=== PATIENT | female | born 1930 | race Hispanic/Latino ===

== ENCOUNTER 2019-02-07 09:15 | Day surgery (SDC) | payer OTHER ==
[2019-02-06 11:44] LABS: Absolute Lymphocytes (CBC) 1.6 K/uL (0.7-4.9); Absolute Monocytes 0.6 K/uL (0.1-1.3); Absolute Neutrophil 8.2 K/uL (1.8-8.0); Basophils % 0.9 % (0-1.3); Eosinophils % 1.2 % (0-4.4); Hematocrit 29.9 % (36.0-45.0); Lymphocytes % 14.9 % (15.3-44.8); MPV 8.4 fL (7.6-11.3); RBC Red Blood Cell Count 3.13 M/uL (3.86-4.86)
[2019-02-06 11:58] LABS: Potassium 4.2 mmol/L (3.5-5.1)
--- OUTSIDE RECORDS SUMMARY | 2019-02-07 09:45 | XMS REPORT ---
:1930 [facility] [place] [address] Care Team Providers Name Role Phone Unavailable Unavailable Unavailable Payers Payer Name Policy Type Policy Number Effective Date Expiration Date Problems This patient has no known problems. Allergies, Adverse Reactions, Alerts Allergy Allergy Status Severity Reaction(s) Onset Inactive Treating Comments Name Type Date Date Clinician ras GUERRERO Active U 2018-07 00:00:0 0 Medications This patient has no known medications.
[2019-02-07] MEDS ORDERED: Ringers Lactate 1,000 ML IV ONE (09:47)
[2019-02-07] MEDS ORDERED: CEFAZOLIN/SWI 1gm 1 GM/10 ML SYR ONE (09:47)
[2019-02-07] MEDS ORDERED: NA CHLORIDE 0.9% 0 ML IV ONE (09:49)
[2019-02-07] MEDS ORDERED: HEPARIN 5000 UNIT/ML 1 ML VIAL ONE (09:49)
[2019-02-07] MEDS ORDERED: LIDOCAINE 1% 20 ML MDV ONE (09:49)
--- NOTE | 2019-02-07 10:09 | RAD REPORT ---
EXAM DESCRIPTION: RAD - Chest Pa And Lat (2 Views) - 02/07/2019 9:49 am CLINICAL HISTORY: History of lung cancer, preop chest for dialysis catheter placement COMPARISON: None. TECHNIQUE: PA and lateral views of the chest were obtained. FINDINGS: The lungs are mildly fibrotic as a baseline. Masslike density in the right lung base is pr esent. This is presumed to be the lung cancer given the provided history. No comparison studies are a vailable. An acute pneumonia cannot be excluded if there are any acute respiratory symptoms. Left jose alejandro g field is clear. No failure or volume overload. Heart size is normal and central vasculature is wi thin normal limits. No pneumothorax. Minimal right pleural effusion is evident. No acute bony findin g noted. No aortic abnormality. Limited upper abdomen imaging shows radiopaque tubing in the right upper quadrant. This is presumed t o be a peritoneal dialysis catheter. IMPRESSION: Masslike density in the right lung base is presumed to be lung cancer given the provided history. As a baseline study, right base pneumonia cannot be excluded. Pneumonia is not likely if the patient has no acute respiratory symptoms. No failure or volume overload.
[2019-02-07] MEDS ORDERED: BUPIVACAINE 0.5% PF 10 ML VIAL ONE (10:18)
[2019-02-07] MEDS ORDERED: FENTANYL CITR 100 MCG/2 ML ONE (10:45)
[2019-02-07] MEDS ORDERED: PROPOFOL 200 MG/20 ML VIAL IV ONE (10:45)
[2019-02-07] MEDS ORDERED: LIDOCAINE 2% MPF 5 ML VIAL ONE (10:46)
[2019-02-07] MEDS ORDERED: LIDOCAINE 1% MPF 2 ML AMPULE ONE (10:50)
--- NOTE | 2019-02-07 18:49 | OP ---
Date of Procedure: 02/07/2019 Surgeon: Monster Tate MD Preoperative Diagnosis: Lung cancer status post right chest PleurX catheter. Postoperative Diagnosis: Lung cancer status post right chest PleurX catheter. Procedure: Removal of right chest PleurX catheter. Estimated Blood Loss: Minimal. Specimen: Catheter. Findings: Normal anatomy. Anesthesia: MAC. Complications: None. Disposition: The patient tolerated the procedure in stable condition, taken to Recovery in good gene ral condition. Procedure In Detail: The patient was brought to the OR and placed in supine position. MAC anesthesi a was begun. The patient was prepped and draped in the usual sterile fashion. Marcaine 0.5% was inf iltrated locally. A 15-blade was used to make an ellipse of skin approximately 2 x 1 cm around the i ncision site of the catheter on the right lateral chest near the bottom. Subcutaneous tissue divided . Cuff identified, freed from the surrounding tissue with sharp and blunt dissection. Pressure appl ied. Catheter removed. Entire catheter identified in 1 piece, sent to Pathology for identification. Wound irrigated. Bleeding controlled with cautery. 2-0 chromic was used to approximate the subcut aneous tissue and close the skin. Then, a sterile occlusive pressure dressing was applied. The patient was awakened and taken to Recovery in good general condition. /MODL Voice ID: [id number] Report ID: [id number]
--- NOTE | 2019-02-07 18:49 | DS ---
Date of Discharge: 02/07/2019 Discharge Note: The patient will go to Day Surgery and home when stable. Disposition: Home. Condition: Stable. Discharge Instructions: Resume home medications and diet. Activity as tolerated. No heavy lifting. Remove outer dressing in 2 days. Shower. Keep wound clean dry. Follow up in my office in 2 weeks . Call for appointment. Ultracet 1 tablet p.o. q.4h. p.r.n. pain. MARIA LUISA/ANDRE Voice ID: [id number] Report ID: [id number]
== END 2019-02-07 12:06 | disposition home or self-care (01) ==
LOC: OR 09:15
PROVIDERS: ATTEND Surgery
PROC: 0WP930Z Removal of Drainage Device from Right Pleural Cavity, Percutaneous Approach (ICD-10-PCS; principal; 2019-02-07 10:30)
DX: Z46.82 Encounter for fitting and adjustment of non-vascular catheter (principal); C34.90 Malignant neoplasm of unspecified part of unspecified bronchus or lung
CPT/HCPCS: 32552; 85025; 80048; 36415; 88300; 71046; J2704; J3010; J2001; J0690; J1644